=== PATIENT | male | born 1985 | race Caucasian/White ===

== ENCOUNTER 2017-10-15 02:36 | Emergency (ER) | payer MEDICAID, OTHER ==
[~2017-10-15] VITALS: Ht 177.8 cm; Wt 86.5 kg
[~2017-10-15 02:36] MED LIST: no home
[2017-10-15 03:33] VITALS: BP 142/79
[2017-10-15] MEDS ORDERED: IBUP-1984 PO (03:38)
== END 2017-10-15 03:43 | disposition home or self-care (01) ==
LOC: ER 02:36
DX: R07.89 Other chest pain (principal); R05 Cough; R06.02 Shortness of breath; F17.210 Nicotine dependence, cigarettes, uncomplicated; Z79.899 Other long term (current) drug therapy
CPT/HCPCS: 71045; 93005; 99284

== ENCOUNTER 2023-05-10 17:10 | Emergency (ER) | payer MEDICAID ==
[~2023-05-10] VITALS: Ht 175.3 cm; Wt 86.4 kg
[2023-05-10] MEDS ORDERED: DOXYCYCLINE 100MG CAPSULE PO STA (20:01)
[2023-05-10] MEDS ORDERED: MUPI22OI30 TOP (20:05)
[2023-05-10] MEDS ORDERED: DOXY-411 PO (20:05)
[2023-05-10 20:08] VITALS: BP 166/89; PULSE 90; RESP 16; TEMP 97.9; O2SAT 99
--- NOTE | 2023-05-10 20:46 | NUR ---
agree with assesment of [employer]
== END 2023-05-10 20:09 | disposition home or self-care (01) ==
LOC: ER 17:11
DX: J34.0 Abscess, furuncle and carbuncle of nose (principal)
CPT/HCPCS: 99283

== ENCOUNTER 2024-04-20 05:49 | Emergency (ER) | payer MEDICAID, OTHER ==
[~2024-04-20] VITALS: Ht 175.3 cm; Wt 92.1 kg
[2024-04-20 05:49] VITALS: BP 142/85; PULSE 110; TEMP 98.8; O2SAT 98
[2024-04-20 05:56] VITALS: RESP 14
[2024-04-20] MEDS ORDERED: dexamethasone 4mg tablet PO ONE (07:40)
[2024-04-20] MEDS ORDERED: naproxen 500mg tablet PO ONE (07:40)
[2024-04-20] MEDS ORDERED: NAPR-56 PO (07:50)
== END 2024-04-20 08:40 | disposition home or self-care (01) ==
LOC: ER 05:49
DX: M70.21 Olecranon bursitis, right elbow (principal); F17.200 Nicotine dependence, unspecified, uncomplicated; Z79.1 Long term (current) use of non-steroidal anti-inflammatories (NSAID)
CPT/HCPCS: 73080; 99283